=== PATIENT | male | born 1955 | race Caucasian/White ===

== ENCOUNTER 2017-12-09 11:07 | Inpatient (IN) | payer SELFPAY ==
[~2017-12-09] VITALS: Ht 165.1 cm; Wt 86.6 kg
[2017-12-09] MEDS ORDERED: SODIUM CHLORIDE 0.9% 1,000 ML IV ONE ×2 (11:30→14:45)
[2017-12-09] MEDS ORDERED: LEVETIRACETAM 500MG PREMIX 100 ML IV ONE (11:30)
[2017-12-09] MEDS ORDERED: LORAZEPAM 2MG/ML CPJ IV ONE ×4 (11:30→16:15)
[2017-12-09 12:10] LABS: CLARITY URINE CLOUDY (CLEAR); COLOR URINE YELLOW (YELLOW); KETONES URINE NEGATIVE (NEGATIVE); LEUKOCYTE ESTERASE URINE NEGATIVE (NEGATIVE); NITRITE URINE NEGATIVE (NEGATIVE); OCCULT BLOOD URINE NEGATIVE (NEGATIVE); PROTEIN URINE TRACE (NEGATIVE); UROBILINOGEN URINE 0.2 E.U./dL (0.2-1.0)
[2017-12-09 12:12] LABS: BASOPHILS % 0.3 % (0.0-2.0); EOSINOPHILS % 0.8 % (0.0-5.0); HEMATOCRIT. 37.5 % (42.0-52.0); LYMPHOCYTES % 12.9 % (20.0-50.0); MEAN CORPUSCULAR HEMOGLOBIN 29.7 pg (28.0-32.0); MEAN CORPUSCULAR VOLUME 85.7 fL (80.0-94.0); MEAN PLATELET VOLUME 7.5 fl (7.4-10.4); MONOCYTES % 6.4 % (2.0-8.0); NEUTROPHILS % 79.6 % (40.0-76.0); PLATELET 199 x1000/uL (130-400); RED BLOOD CELL COUNT 4.38 mill/uL (4.7-6.1); RED CELL DISTRIBUTION WIDTH 12.8 % (11.6-14.6)
[2017-12-09 12:19] LABS: CHLORIDE 89 mEq/L (98-107)
[2017-12-09 12:23] LABS: ETHANOL BLOOD < 10 mg/dL
[2017-12-09 12:28] LABS: VALPROIC ACID < 3.0 ug/mL (50-100)
[2017-12-09 13:00] LABS: *AMPHETAMINES SCREEN URINE NEGATIVE (NEGATIVE); *BARBITURATES SCREEN URINE NEGATIVE (NEGATIVE)
[2017-12-09 13:01] LABS: *BENZODIAZEPINES SCREEN URINE NEGATIVE (NEGATIVE); *COCAINE SCREEN URINE NEGATIVE (NEGATIVE); METHADONE URINE SCREEN NEGATIVE (NEGATIVE); OPIATES URINE SCREEN NEGATIVE (NEGATIVE)
[2017-12-09 13:02] LABS: CANNABINOID URINE SCREEN PRESUMTIVE POSITIVE (NEGATIVE); PHENCYCLIDINE URINE SCREEN NEGATIVE (NEGATIVE)
[2017-12-09] MEDS ORDERED: LORAZEPAM 2MG/ML CPJ IM ONE (13:15)
[2017-12-09] MEDS ORDERED: LORAZEPAM 2MG/ML CPJ ONE (13:19)
[2017-12-09] MEDS ORDERED: GUAIFENESIN 200MG/10ML SUGAR FREE UDC PO PRN (17:15)
[2017-12-09] MEDS ORDERED: ZOLPIDEM TARTRATE 5MG TABLET PO PRN (17:15)
[2017-12-09] MEDS ORDERED: ONDANSETRON HCL 4MG/2ML INJ IV PRN (17:15)
[2017-12-09] MEDS ORDERED: ACETAMINOPHEN 325MG TABLET PO PRN (17:15)
[2017-12-09] MEDS ORDERED: CLONIDINE 0.1MG TABLET PO PRN (17:15)
[2017-12-09] MEDS ORDERED: DOCUSATE SODIUM 100MG CAPSULE PO PRN (17:15)
[2017-12-09] MEDS ORDERED: LORAZEPAM 2MG/ML CPJ IV PRN (17:15)
[2017-12-09] MEDS ORDERED: NA PHOS,M-B/NA PHOS,DI-BA ENEMA 118ML PR PRN (17:15)
[2017-12-09] MEDS ORDERED: IPRATROPIUM/ALBUTEROL 0.5-3(2.5)MG/3ML NEB INH PRN (17:15)
[2017-12-09] MEDS ORDERED: MAGNESIUM/ALUMINUM HYDROXIDE/SIMETHICONE 30ML UDC PO PRN (17:15)
[2017-12-09 17:23] LABS: BG BASE EXCESS -1.1 mmol/L (-2.0-2.0); BG CARBOXYHEMOGLOBIN 1.3 % (0.5-1.5); BG DEOXYHEMOGLOBIN 5.9 % (0.0-5.0); BG HCO3 ACT 22.8 mmol/L (22.0-26.0); BG METHEMOGLOBIN 0.2 % (0.0-1.5); BG OXYHEMOGLOBIN 92.6 % (94.0-97.0); BG PCO2 35.8 mmHg (35.0-45.0); BG PH 7.422 (7.350-7.450); BG PO2 71.5 mmHg (75.0-100.0); BG SAMPLE SITE RIGHT RADIAL; BG TOTAL HEMOGLOBIN 13.9 g/dL (12.0-18.0); BG VENT MODE ROOM AIR
[2017-12-09 17:23] LABS: AMMONIA 44 uMol/L (<32)
[2017-12-09] MEDS: MVI, ADULT NO.1 10 ML, FOLIC ACID 1 MG, THIAMINE HCL 100 MG in SODIUM CHLORIDE 0.9% 1,0... IV SCH ×4 (23:26)
[2017-12-09] MEDS: SODIUM CHLORIDE 0.9% 1,000 ML IV SCH (23:28)
[2017-12-09 23:34] VITALS: BP 106/54
[2017-12-09] MEDS ORDERED: LEVETIRACETAM 500MG PREMIX 100 ML IV SCH (23:59)
[2017-12-10] MEDS: LEVETIRACETAM 500 MG in SODIUM CHLORIDE 0.9% 100 ML IV SCH ×3 (01:29→20:03)
[2017-12-10 04:00] VITALS: BP 108/65
[2017-12-10 08:15] VITALS: BP 109/65
[2017-12-10] MEDS: FAMOTIDINE 20MG TABLET PO SCH ×2 (08:25→20:04)
[2017-12-10] MEDS: ENOXAPARIN 40MG/0.4ML SYR SUBCUT SCH (08:25)
[2017-12-10 10:08] VITALS: BP 109/65
[2017-12-10 12:00] VITALS: BP 128/75
[2017-12-10 16:00] VITALS: BP 118/71
[2017-12-10 19:49] VITALS: BP 133/79
[2017-12-10] MEDS: MVI, ADULT NO.1 10 ML, FOLIC ACID 1 MG, THIAMINE HCL 100 MG in SODIUM CHLORIDE 0.9% 1,0... IV SCH ×4 (20:04)
[2017-12-11] VITALS: BP 123/78
[2017-12-11] MEDS: LEVETIRACETAM 500 MG in SODIUM CHLORIDE 0.9% 100 ML IV SCH ×3 (00:34→20:52)
[2017-12-11] MEDS: SODIUM CHLORIDE 0.9% 1,000 ML IV SCH ×3 (03:40→17:00)
[2017-12-11 04:00] VITALS: BP 127/81
[2017-12-11 08:00] VITALS: BP 138/80
[2017-12-11] MEDS: FAMOTIDINE 20MG TABLET PO SCH ×2 (09:14→20:52)
[2017-12-11] MEDS: ENOXAPARIN 40MG/0.4ML SYR SUBCUT SCH (09:15)
[2017-12-11 12:00] VITALS: BP 140/88
[2017-12-11 16:27] VITALS: BP 131/77
[2017-12-11] MEDS: KETOROLAC 15MG/ML VIAL IV PRN (19:44)
[2017-12-11 20:00] VITALS: BP 134/78
[2017-12-12] VITALS: BP 127/72
[2017-12-12 04:00] VITALS: BP 131/82
[2017-12-12] MEDS: SODIUM CHLORIDE 0.9% 1,000 ML IV SCH (05:43)
[2017-12-12 08:00] VITALS: BP 119/77
[2017-12-12] MEDS: LEVETIRACETAM 500 MG in SODIUM CHLORIDE 0.9% 100 ML IV SCH ×2 (08:42→21:16)
[2017-12-12] MEDS: FAMOTIDINE 20MG TABLET PO SCH ×2 (08:42→21:15)
[2017-12-12] MEDS: ENOXAPARIN 40MG/0.4ML SYR SUBCUT SCH (08:43)
[2017-12-12 12:00] VITALS: BP 126/83
[2017-12-12] MEDS: KETOROLAC 15MG/ML VIAL IV PRN (12:42)
[2017-12-12 16:00] VITALS: BP 139/84
[2017-12-12 20:00] VITALS: BP 128/78
[2017-12-13] VITALS: BP 107/64
[2017-12-13 04:00] VITALS: BP 114/70
[2017-12-13 08:00] VITALS: BP 110/70
[2017-12-13] MEDS: ENOXAPARIN 40MG/0.4ML SYR SUBCUT SCH (09:02)
[2017-12-13] MEDS: FAMOTIDINE 20MG TABLET PO SCH ×2 (09:02→21:14)
[2017-12-13] MEDS: LEVETIRACETAM 500 MG in SODIUM CHLORIDE 0.9% 100 ML IV SCH (09:02)
[2017-12-13 12:00] VITALS: BP 123/82
[2017-12-13] MEDS ORDERED: INSULIN GLARGINE UD 100 UNITS/ML SYR SUBCUT ONE (14:45)
[2017-12-13 17:48] LABS: BASOPHILS % 0.4 % (0.0-2.0); EOSINOPHILS % 3.9 % (0.0-5.0); HEMATOCRIT. 34.7 % (42.0-52.0); HEMOGLOBIN. 11.8 g/dL (14.0-18.0); LYMPHOCYTES % 34.6 % (20.0-50.0); MEAN CORPUSCULAR HEMOGLOBIN 29.7 pg (28.0-32.0); MEAN CORPUSCULAR VOLUME 87.2 fL (80.0-94.0); MEAN PLATELET VOLUME 7.9 fl (7.4-10.4); MONOCYTES % 10.4 % (2.0-8.0); NEUTROPHILS % 50.7 % (40.0-76.0); PLATELET 223 x1000/uL (130-400); RED BLOOD CELL COUNT 3.98 mill/uL (4.7-6.1); RED CELL DISTRIBUTION WIDTH 12.8 % (11.6-14.6)
[2017-12-13 18:00] LABS: CHLORIDE 94 mEq/L (98-107)
[2017-12-13 20:00] VITALS: BP 128/75
[2017-12-13] MEDS: LEVETIRACETAM 500MG TABLET PO SCH (21:14)
[2017-12-14] VITALS: BP 112/74
[2017-12-14 04:00] VITALS: BP 109/68
[2017-12-14 08:00] VITALS: BP 106/74
[2017-12-14] MEDS: LEVETIRACETAM 500MG TABLET PO SCH ×2 (08:32→21:01)
[2017-12-14] MEDS: FAMOTIDINE 20MG TABLET PO SCH ×2 (08:32→21:02)
[2017-12-14] MEDS: ENOXAPARIN 40MG/0.4ML SYR SUBCUT SCH (08:33)
[2017-12-14 12:00] VITALS: BP 100/78
[2017-12-14 16:00] VITALS: BP 110/68
[2017-12-14 20:00] VITALS: BP 123/70
[2017-12-15] VITALS: BP 127/69
[2017-12-15 04:00] VITALS: BP 116/72
[2017-12-15 08:16] VITALS: BP 103/74
[2017-12-15] MEDS: FAMOTIDINE 20MG TABLET PO SCH (08:27)
[2017-12-15] MEDS: ENOXAPARIN 40MG/0.4ML SYR SUBCUT SCH (08:27)
[2017-12-15] MEDS: LEVETIRACETAM 500MG TABLET PO SCH (08:27)
[2017-12-15 12:00] VITALS: BP 106/73
[2017-12-15 15:42] VITALS: BP 112/76
[2017-12-15 17:23] VITALS: BP 112/76
== END 2017-12-15 18:03 | disposition home or self-care (01) | DRG 53 ==
LOC: ER 14:47 → 8WST 17:04 → EDBEDREQSVC 18:16 → EDBEDREQTM 18:16 → EDBEDREQ 18:16 → ENRESERV 19:49 → CANRESERV 19:49 → EDBEDREQSVC 20:27 → ENRESERV 21:22 → 8WST 23:07
PROVIDERS: ADMIT Internal Medicine; ATTEND Internal Medicine
DX: G40.909 Epilepsy, unspecified, not intractable, without status epilepticus (principal); E44.1 Mild protein-calorie malnutrition; E87.1 Hypo-osmolality and hyponatremia; E83.51 Hypocalcemia; E83.52 Hypercalcemia; F17.200 Nicotine dependence, unspecified, uncomplicated; Z68.31 Body mass index [BMI] 31.0-31.9, adult
CPT/HCPCS: 36415; 36600; 80048; 80061; 80165; 80185; 80305; 82140; 82375; 82805; 83036; 93005; 93970; 96361; 96365; 96372; 96375; 99291; C1893; G0482; J1650; J1885; J1953; J2060; J3411; J3490; J7030; J7050; A4315